=== PATIENT | male | born 1975 | race Caucasian/White ===

== ENCOUNTER → 2020-01-04 | Outpatient (CLI) | payer OTHER ==
--- NOTE | 2020-01-04 13:16 | XR ---
EXAMINATION TYPE: XR ankle complete RT DATE OF EXAM: 01/04/2020 CLINICAL HISTORY: Right foot pain, localized over the medial malleolus. Prior injury and surgery 15 y ears ago. TECHNIQUE: Frontal, lateral and oblique images of the right ankle are obtained. COMPARISON: None. FINDINGS: No acute fracture seen of the right ankle. There is osseous bridging of the distal fibula a nd tibia through the syndesmosis. Lateral fixation plate is seen with 5 cortical screws. The most inf erior cortical screw does appear fractured although the lateral fixation plate abuts the cortical amanda face of the fibula appropriately. Medial fixation plate also abuts the cortical surface appropriately . There are 6 medial fixation screws that appear grossly intact. 2 screws traverse the tibiotalar osvaldo nt. Narrowing of the lateral tibiotalar joint is seen. Some bony productive change of the posterior t ibiotalar joint. IMPRESSION: 1. No acute fracture seen of the right ankle. 2. Extensive postsurgical change with fracture of the most inferior lateral fixation plate and cortic al screw although alignment appears maintained. 3. Narrowing of the lateral tibiotalar joint and some bony productive change of the posterior talotib ial joint.
== END | disposition home or self-care (01) ==
LOC: RADXRMAIN 12:47
PROVIDERS: ATTEND Family Medicine
DX: M25.871 Other specified joint disorders, right ankle and foot (principal)

== ENCOUNTER 2021-04-15 00:06 | Emergency (ER) | payer OTHER ==
[2021-04-15 00:12] VITALS: BP 145/98; PULSE 94; RESP 18; TEMP 97.9
[2021-04-15] MEDS ORDERED: KETOROLAC 15 MG/ML 1 ML VIAL IM STA (01:13)
[2021-04-15] MEDS ORDERED: diazePAM 2 MG TAB PO STA (01:13)
--- NOTE | 2021-04-15 01:35 | ED ---
Back Pain HPI <Aron Sandoval - Last Filed: 04/15/21 16:16> - General Source: patient Limitations: no limitations <Ester Lim - Last Filed: 04/15/21 20:27> - General Chief Complaint: Back Pain/Injury Stated Complaint: Back Pain Time Seen by Provider: 04/15/21 00:27 - History of Present Illness Initial Comments: Patient is a 45-year-old male presenting to the emergency Department with complaints of lower back pain that started getting worse today. He is also complaining of some left sinus pressure and earache. He states he does have chronic back pain normally but states today he feels like he "tweeked it," he continued to work throughout the day and then towards the end of the day he could not work. He is having lots of tightness and muscle spasm on his right lumbar area, extends into his right sciatic area. He denies any loss of bowel or bladder control, no numbness/ tingling into his legs. No saddle paresthesias. He is also complaining of about 1 week of sinus pressure and congestion, left ear pain. He is concerned for a sinus infection. He denies any fevers or chills, no chest pain or shortness of breath. He has no further complaints at this time. (Ester Lim) - Related Data Home Medications Medication Instructions Recorded Confirmed HYDROcodone/APAP 5-325MG [[place] 1 tab PO Q6HR PRN 04/15/21 04/15/21 5-325] Previous Rx's Medication Instructions Recorded Amoxicillin/Potassium Clav 1 tab PO Q12HR 5 Days #10 tab 04/15/21 [Augmentin 875-125 Tablet] Cyclobenzaprine [Flexeril] 5 mg PO TID #10 tablet 04/15/21 Allergies Allergy/AdvReac Type Severity Reaction Status Date / Time codeine AdvReac Nausea Verified 04/15/21 00:13 Review of Systems ROS Other: All systems not noted in ROS Statement are negative. <Aron Sandoval - Last Filed: 04/15/21 16:16> ROS Other: All systems not noted in ROS Statement are negative. <Ester Lim - Last Filed: 04/15/21 20:27> ROS Statement: Those systems with pertinent positive or pertinent negative responses have been documented in the HPI. Past Medical History Additional Past Medical History / Comment(s): back pain History of Any Multi-Drug Resistant Organisms: None Reported Past Surgical History: Joint Replacement, Orthopedic Surgery Past Psychological History: No Psychological Hx Reported Smoking Status: Current every day smoker Past Alcohol Use History: Occasional Past Drug Use History: Marijuana <Ester Lim - Last Filed: 04/15/21 20:27> General Exam Limitations: no limitations <Ester Lim - Last Filed: 04/15/21 20:27> - General Exam Comments Initial Comments: GENERAL: Patient is well-developed and well-nourished. Patient is nontoxic and in mild distress. HEAD: Atraumatic, normocephalic. EYES: Pupils equal round and reactive to light, extraocular movements intact, sclera anicteric, conjunctiva are normal. Eyelids were unremarkable. ENT: TMs normal, nares patent, oropharynx clear without exudates. Moist mucous membranes. Some mild tenderness over the maxillary sinuses. NECK: Normal range of motion, supple without lymphadenopathy or JVD. LUNGS: Unlabored respirations. Breath sounds clear to auscultation bilaterally and equal. No wheezes rales or rhonchi. HEART: Regular rate and rhythm without murmurs, rubs or gallops. ABDOMEN: Soft, nontender, normoactive bowel sounds. No guarding, no rebound. No masses appreciated. : Deferred MUSCULOSKELETAL: Normal extremities with adequate strength and normal range of motion, no pitting or edema. No clubbing or cyanosis. He has pain with palpation of the right lumbar paraspinals and into the right sciatic area. NEUROLOGICAL: Patient is alert and oriented x 3. Motor and sensory are also intact. Cranial nerves II through XII grossly intact. Symmetrical smile. Normal speech, normal gait. PSYCH: Normal mood, normal affect. SKIN: Warm, Dry, normal turgor, no rashes or lesions noted. (Ester Lim) Course Vital Signs 04/15/21 00:09 Temperature 97.9 F Pulse Rate 94 Respiratory 18 Rate Blood Pressure 145/98 O2 Sat by Pulse 98 Oximetry Medical Decision Making <Aron Sandoval P - Last Filed: 04/15/21 16:16> <Ester Lim - Last Filed: 04/15/21 20:27> - Medical Decision Making Chart accessed by myself as I was asked to send scripts to a pharmacy as the previous pharmacy was not open on Sundays. (Aron Sandoval) Patient is a 45-year-old male here for an increase in chronic low back pain that started today as well as possible sinus infection. Patient's exam reveals tenderness along the right lumbar paraspinals consistent with a muscle spasm. Rest of the neuro exam is unremarkable, no signs of cauda equina. Patient will also be treated for sinusitis. She'll be given Toradol and a Valium today, give him a prescription for Flexeril and Augmentin for a sinus infection. He is stable for discharge and he is in agreement this plan of care. I also recommended heat and ice the area. He can follow up with his PCP. Return parameters were discussed with him and he verbalized understanding. Case d iscussed with Dr. Bryant. (Ester Lim) Disposition <Aron Sandoval - Last Filed: 04/15/21 16:16> Is patient prescribed a controlled substance at d/c from ED?: No Time of Disposition: 01:34 <Ester Lim - Last Filed: 04/15/21 20:27> Clinical Impression: Strain of lumbar region, Sinusitis Disposition: HOME SELF-CARE Condition: Stable Instructions (If sedation given, give patient instructions): Acute Low Back Pain (ED) Additional Instructions: Please return to the Emergency Department if symptoms worsen or any other concerns. May alternate between Tylenol and Motrin for discomfort. May take muscle relaxer at nighttime. Apply ice or heat to the area, gentle massage. Take antibiotics for sinus infection. Prescriptions: Amoxicillin/Potassium Clav [Augmentin 875-125 Tablet] 1 tab PO Q12HR 5 Days #10 tab Cyclobenzaprine [Flexeril] 5 mg PO TID #10 tablet Referrals: Ann Bautista DO [Primary Care Provider] - 1-2 days
== END 2021-04-15 01:40 | disposition home or self-care (01) ==
LOC: EC 00:06
DX: S39.012A Strain of muscle, fascia and tendon of lower back, initial encounter (principal); J32.9 Chronic sinusitis, unspecified; F17.200 Nicotine dependence, unspecified, uncomplicated; Z88.5 Allergy status to narcotic agent; X58.XXXA Exposure to other specified factors, initial encounter; Y93.89 Activity, other specified; Y92.89 Other specified places as the place of occurrence of the external cause
CPT/HCPCS: 99283; 96372; J1885

== ENCOUNTER 2024-10-04 11:10 | Emergency (ER) | payer OTHER ==
[2024-10-04 11:21] VITALS: TEMP 98
[2024-10-04] MEDS: IBUPROFEN 800 MG TAB PO STA (12:19)
[2024-10-04 12:22] VITALS: BP 136/98; PULSE 89; RESP 16
[2024-10-04] MEDS: CYCLOBENZAPRINE 10 MG TAB PO STA (12:33)
[2024-10-04] MEDS: ORPHENADRINE 30 MG/ML 2 ML VIAL IM STA (12:34)
--- NOTE | 2024-10-04 13:05 | XR ---
EXAMINATION TYPE: XR thoracic spine 2V DATE OF EXAM: 10/04/2024 12:57 PM INDICATION: Patient age:Male; 48 years old; Reason for study: Back/rib pain following heavy lifting, twisting; PHH. COMPARISON: None TECHNIQUE: Frontal, lateral, and swimmer's views of the spine. FINDINGS: No evidence of any acute osseous pathology. No evidence of loss of vertebral body height i s seen. There is normal alignment of the thoracic vertebral bodies. Anterior osteophytosis with disc space narrowing involving the cervical spine. IMPRESSION: 1. No acute process. 2. Mild degenerative disc disease of the cervical spine. [facility], , 10/04/2024 1:02 PM
--- NOTE | 2024-10-04 13:06 | XR ---
EXAMINATION TYPE: XR ribs bilateral DATE OF EXAM: 10/04/2024 12:58 PM INDICATION: Patient age:Male; 48 years old; Reason for study: Back/rib pain following heavy lifting, twisting; PHH. COMPARISON: Thoracic spine radiograph of the same date TECHNIQUE: Frontal and oblique views of the bilateral ribs. FINDINGS: The ribs have a normal appearance. No evidence of fracture. Overall, the lungs are clear. The cardiac silhouette is normal in size. The remaining osseous structures are intact. IMPRESSION: No acute osseous pathology. [facility], , 10/04/2024 1:04 PM
--- NOTE | 2024-10-04 13:15 | ED ---
Back Pain HPI - General Chief Complaint: Back Pain/Injury Stated Complaint: Back Pain Source: patient, RN notes reviewed Limitations: no limitations - History of Present Illness Initial Comments: This is a 48-year-old male presenting with mid back pain x 1 hour. Patient states he was lifting a 5 gallon bucket into the dumpster at work when he felt sudden pain in his back. Patient describes pain as "tight" that worsens with movement. Patient denies radiculopathy, paresthesia, chest pain, dyspnea, abdominal pain, N/V/D. MD Complaint: back pain, back injury Onset/Timin -: days(s) Place: work Radiation: none Severity scale (1-10): 6 Consistency: constant Improves With: immobilization Worsens With: movement, sitting upright Context: while lifting, turning/twisting Associated Symptoms: denies other symptoms - Related Data Home Medications Medication Instructions Recorded Confirmed HYDROcodone/APAP 5-325MG [[place] 1 tab PO Q6HR PRN 04/15/21 04/15/21 5-325] Previous Rx's Medication Instructions Recorded Amoxicillin/Potassium Clav 1 tab PO Q12HR 5 Days #10 tab 04/15/21 [Augmentin 875-125 Tablet] Cyclobenzaprine [Flexeril] 5 mg PO TID #10 tablet 04/15/21 Cyclobenzaprine [Flexeril] 10 mg PO TID PRN #20 tab 10/04/24 Ibuprofen [Motrin] 800 mg PO Q8H PRN #30 tab 10/04/24 Allergies Allergy/AdvReac Type Severity Reaction Status Date / Time codeine AdvReac Nausea Verified 10/04/24 11:21 Review of Systems ROS Statement: Those systems with pertinent positive or pertinent negative responses have been documented in the HPI. ROS Other: All systems not noted in ROS Statement are negative. Past Medical History Additional Past Medical History / Comment(s): back pain History of Any Multi-Drug Resistant Organisms: None Reported Past Surgical History: Joint Replacement, Orthopedic Surgery Past Psychological History: No Psychological Hx Reported Smoking Status: Current every day smoker Past Alcohol Use History: Occasional Past Drug Use History: Marijuana General Exam Limitations: no limitations General appearance: alert, in no apparent distress Head exam: Present: atraumatic, normocephalic, normal inspection Eye exam: Present: normal appearance, PERRL, EOMI. Absent: scleral icterus, conjunctival injection, periorbital swelling ENT exam: Present: normal exam, mucous membranes moist Neck exam: Present: normal inspection. Absent: tenderness, meningismus, lymphadenopathy Respiratory exam: Present: normal lung sounds bilaterally. Absent: respiratory distress, wheezes, rales, rhonchi, stridor Cardiovascular Exam: Present: regular rate, normal rhythm, normal heart sounds. Absent: systolic murmur, diastolic murmur, rubs, gallop, clicks GI/Abdominal exam: Present: soft, normal bowel sounds. Absent: distended, tenderness, guarding, rebound, rigid Extremities exam: Present: normal inspection, full ROM, normal capillary refill. Absent: tenderness, pedal edema, joint swelling, calf tenderness Back exam: Present: normal inspection, paraspinal tenderness (Right paraspinal tenderness around T10) Neurological exam: Present: alert, oriented X3, CN II-XII intact Psychiatric exam: Present: normal affect, normal mood Skin exam: Present: warm, dry, intact, normal color. Absent: rash Course Vital Signs 10/04/24 10/04/24 11:16 12:21 Temperature 98 F Pulse Rate 86 89 Respiratory 18 16 Rate Blood Pressure 160/97 136/98 O2 Sat by Pulse 98 98 Oximetry Medical Decision Making - Medical Decision Making Was pt. sent in by a medical professional or institution (FARHAT Mccord, SHANK INSPECTOR, urgent care, hospital, or longterm...) When possible be specific @ -No Did you speak to anyone other than the patient for history (EMS, parent, family, police, friend...)? What history was obtained from this source @ -No Did you review nursing and triage notes (agree or disagree)? Why? @ -I reviewed and agree with nursing and triage notes Were old charts reviewed (outside hosp., previous admission, EMS record, old EKG, old radiological studies, urgent care reports/EKG's, longterm records)? Report findings @ -No old charts were reviewed Differential Diagnosis (chest pain, altered mental status, abdominal pain women, abdominal pain men, vaginal bleeding, weakness, fever, dyspnea, syncope, headache, dizziness, GI bleed, back pain, seizure, CVA, palpatations, mental health, musculoskeletal)? @ -Differential Back Pain: Strain, zoster, cauda equina syndrome, epidural abscess, vertebral osteomyelitis, discitis, fracture, subluxation, disc herniation, DJD, spinal stenosis, dissection, AAA, pancreatitis, peptic ulcer disease, pyelonephritis, kidney stone, this is not meant to be an all-inclusive list. EKG interpreted by me (3pts min.). @ -Not done X-rays interpreted by me (1pt min.). @ -Thoracic spine x-ray shows no acute process, mild DDD of cervical spine noted. Right rib x-ray shows no acute osseous pathology. CT interpreted by me (1pt min.). @ -None done U/S interpreted by me (1pt. min.). @ -None done What testing was considered but not performed or refused? (CT, X-rays, U/S, labs)? Why? @ -None What meds were considered but not given or refused? Why? @ -None Did you discuss the management of the patient with other professionals (professionals i.e. , PA, SHANK INSPECTOR, lab, RT, psych nurse, manager social services, funeral director/embalmer/owner, teacher, restoration officer, case monitor)? Give summary @ -No Was smoking cessation discussed for >3mins.? @ -No Was critical care preformed (if so, how long)? @ -No Were there social determinants of health that impacted care today? How? (Homelessness, low income, unemployed, alcoholism, drug addiction, transportation, low edu. Level, literacy, decrease access to med. care, care home, rehab)? @ -No Was there de-escalation of care discussed even if they declined (Discuss DNR or withdrawal of care, Hospice)? DNR status @ -No What co-morbidities impacted this encounter? (DM, HTN, Smoking, COPD, CAD, Cancer, CVA, ARF, Chemo, Hep., AIDS, mental health diagnosis, sleep apnea, morbid obesity)? @ -None Was patient admitted / discharged? Hospital course, mention meds given and route, prescriptions, significant lab abnormalities, going to OR and other pertinent info. @ -Thoracic spine x-ray shows no acute process, mild DDD of cervical spine noted. Right rib x-ray shows no acute osseous pathology. Patient given IM Norflex and p.o. Motrin 800 and Flexeril. Flexeril and Motrin 800 sent to pharmacy. Work note with lifting restrictions provided. Undiagnosed new problem with uncertain prognosis? @ -No Drug Therapy requiring intensive monitoring for toxicity (Heparin, Nitro, Insulin, Cardizem)? @ -No Were any procedures done? @ -No Diagnosis/symptom? @ -Intercostal thoracic pain Acute, or Chronic, or Acute on Chronic? @ -Acute Uncomplicated (without systemic symptoms) or Complicated (systemic symptoms)? @ -Uncomplicated Side effects of treatment? @ -No Exacerbation, Progression, or Severe Exacerbation? @ -No Poses a threat to life or bodily function? How? (Chest pain, [place], [place], pneumonia, PE, COPD, DKA, ARF, appy, cholecystitis, CVA, Diverticulitis, Homicidal, Suicidal, threat to staff... and all critical care pts) @ -No Disposition Clinical Impression: Thoracic back pain, Spasm of back muscles Disposition: HOME SELF-CARE Condition: Good Instructions (If sedation given, give patient instructions): Acute Low Back Pain (ED) Prescriptions: Cyclobenzaprine [Flexeril] 10 mg PO TID PRN #20 tab PRN Reason: Spasms Ibuprofen [Motrin] 800 mg PO Q8H PRN #30 tab PRN Reason: Pain Is patient prescribed a controlled substance at d/c from ED?: No Referrals: Ann Bautista DO [Primary Care Provider] - 1-2 days Time of Disposition: 13:15
== END 2024-10-04 13:38 | disposition home or self-care (01) ==
LOC: EC 11:10
DX: M62.830 Muscle spasm of back (principal); R07.82 Intercostal pain; F17.200 Nicotine dependence, unspecified, uncomplicated; Z88.5 Allergy status to narcotic agent; X50.0XXA Overexertion from strenuous movement or load, initial encounter
CPT/HCPCS: 71110; 72070; 99283